=== PATIENT | female | born 1935 | race Caucasian/White ===

== ENCOUNTER 2016-10-14 20:56 | Emergency (ER) | payer OTHER ==
--- NOTE | 2016-10-14 21:10 | CPEKG ---
Heart Rate: 80 RR Interval: 750 P-R Interval: 212 QRSD Interval: 100 QT Interval: 404 QTC Interval: 466 P Charlotte: 71 QRS Charlotte: 7 T Wave Charlotte: 39 EKG Severity - OTHERWISE NORMAL ECG - EKG Impression: SINUS RHYTHM EKG Impression: VENTRICULAR PREMATURE COMPLEX Electronically Signed By: Manny Mena 14-Oct-2016 21:15:13
[2016-10-14] MEDS ORDERED: NITROGLYCERIN 0.4 MG BTL SL PRN (21:11)
[2016-10-14] MEDS ORDERED: NS 500 ML IV ONE (21:11)
[2016-10-14] MEDS ORDERED: ASPIRIN 81 MG CHEWABLE TAB PO ONE (21:11)
--- NOTE | 2016-10-14 21:14 | EDPHY ---
H & P Time Seen by Provider: 10/14/16 21:02 HPI/ROS: CHIEF COMPLAINT: Chest pain, hypertension HISTORY OF PRESENT ILLNESS: Patient is an 80-year-old female who comes to the emergency department complaining of left-sided chest pain that began about 2 hours ago. She also noticed that her blood pressure was high today near 200 systolic. She states that it tends to fluctuate greatly and that when she goes to the dentist who will be near 200 but then when she goes to [place] an hour to later it will be 130. She does not have any history of coronary artery disease. She denies any shortness of breath, nausea or diaphoresis. Her symptoms are not worsened by exertion or movement. She has not had a fever. She does have a mild dry cough. She does not feel lightheaded or dizzy. REVIEW OF SYSTEMS: Constitutional: denies: chills, fever, recent illness, recent injury EENTM: denies: blurred vision, double vision, nose congestion Respiratory: See HPI Cardiac: See HPI Gastrointestinal/Abdominal: denies: abdominal pain, diarrhea, nausea, vomiting, blood streaked stools Genitourinary: denies: dysuria, frequency, hematuria, pain Musculoskeletal: denies: joint pain, muscle pain Skin: denies: lesions, rash, jaundice, bruising Neurological: denies: headache, numbness, paresthesia, tingling, dizziness, weakness Hematologic/Lymphatic: denies: blood clots, easy bleeding, easy bruising Immunologic/allergic: denies: HIV/AIDS, transplant EXAM: GENERAL: Well-appearing, well-nourished and in no acute distress. HEAD: Atraumatic, normocephalic. EYES: Pupils equal round and reactive to light, extraocular movements intact, sclera anicteric, conjunctiva are normal. ENT: TMs normal, nares patent, oropharynx clear without exudates. Moist mucous membranes. NECK: Normal range of motion, supple without lymphadenopathy or JVD. LUNGS: Breath sounds clear to auscultation bilaterally and equal. No wheezes rales or rhonchi. HEART: Regular rate and rhythm without murmurs, rubs or gallops. ABDOMEN: Soft, nontender, normoactive bowel sounds. No guarding, no rebound. No masses appreciated. BACK: No CVA tenderness, no spinal tenderness, step-offs or deformities EXTREMITIES: Normal range of motion, no pitting or edema. No clubbing or cyanosis. NEUROLOGICAL: Cranial nerves II through XII grossly intact. Normal speech, normal gait. 5/5 strength, normal movement in all extremities, normal sensation PSYCH: Normal mood, normal affect. SKIN: Warm, dry, normal turgor, no visible rashes or lesions. Source: Patient Exam Limitations: No limitations - Medical/Surgical History Hx Asthma: No Hx Chronic Respiratory Disease: No Hx Diabetes: No Hx Cardiac Disease: No Hx Renal Disease: No Hx Cirrhosis: No Hx Alcoholism: No Hx HIV/AIDS: No Hx Splenectomy or Spleen Trauma: No Other PMH: htn; high cholesterol; - Family History Significant Family History: Hypertension - Social History Smoking Status: Never smoked Alcohol Use: Sober Drug Use: None Constitutional: Initial Vital Signs Temperature (C) 36.8 C 10/14/16 21:18 Heart Rate 71 10/14/16 21:18 Respiratory Rate 18 10/14/16 21:18 Blood Pressure 162/81 H 10/14/16 21:18 O2 Sat (%) 96 10/14/16 21:18 O2 Delivery Mode Room Air Allergies/Adverse Reactions: No Known Allergies Allergy (Verified 10/14/16 21:18) Home Medications: Medication Instructions Recorded ASPIRIN 08/30/14 Amlodipine-Atorvast 5-10 mg 08/30/14 Atorvastatin Calcium 08/30/14 Hydrochlorothiazide 08/30/14 Medical Decision Making - Diagnostics EKG Interpretation: An EKG obtained and was read and documented in trace view. Please see trace view for full reading and report. Sinus rhythm, PVC, no acute ischemic changes Imaging: X-ray: chest x-ray was obtained. I viewed the images myself on the PACS system. My interpretation of the images is: negative for acute disease . The radiologist interpretation is negative. ED Course/Re-evaluation: 10:15 p.m. we discussed the patient's lab and imaging results. They are reassuring. She states that her pain is completely gone. Her blood pressure is now 160 systolic. I recommended admission for continued cardiac rule out. The patient adamantly denies this. She declines my 2nd troponin here in the emergency department as well. I will call her [place] physician and recommend outpatient stress test and follow up tomorrow. The patient agrees with this. 10:35 p.m. I spoke with [place] who will have cardiology call her tomorrow to schedule a stress test. Differential Diagnosis: Partial list of the Differential diagnosis considered include but were not limited to; acute coronary disease, anxiety, hypertension and although unlikely based on the history and physical exam, I also considered cardiac arrhythmia, emergent hypertension, dissection, aneurysm, PE, pneumonia. I discussed these differential diagnoses and the plan with the patient as well as the usual and expected course. The patient understands that the diagnosis is provisional and that in medicine we are not always correct and that further workup is often warranted. Usual and customary warnings were given. All of the patient's questions were answered. The patient was instructed to return to the emergency department should the symptoms at all worsen or return, otherwise to followup with the physician as we discussed. - Data Points Laboratory Results: Laboratory Results 10/14/16 21:15 10/14/16 21:15 10/14/16 10/14/16 10/14/16 21:15 21:15 21:15 WBC 8.04 10^3/uL 10^3/uL (3.80-9.50) RBC 4.55 10^6/uL 10^6/uL (4.18-5.33) Hgb 15.0 g/dL g/dL (12.6-16.3) Hct 43.3 % % (38.0-47.0) MCV 95.2 fL fL (81.5-99.8) MCH 33.0 pg pg (27.9-34.1) MCHC 34.6 g/dL g/dL (32.4-36.7) RDW 12.5 % % (11.5-15.2) Plt Count 256 10^3/uL 10^3/uL (150-400) MPV 9.2 fL fL (8.7-11.7) Neut % (Auto) 47.0 % % (39.3-74.2) Lymph % (Auto) 43.5 % % (15.0-45.0) Vance % (Auto) 6.5 % % (4.5-13.0) Eos % (Auto) 2.1 % % (0.6-7.6) Baso % (Auto) 0.7 % % (0.3-1.7) Nucleat RBC Rel Count 0.0 % % (0.0-0.2) Absolute Neuts (auto) 3.77 10^3/uL 10^3/uL (1.70-6.50) Absolute Lymphs (auto) 3.50 10^3/uL H 10^3/uL (1.00-3.00) Absolute Monos (auto) 0.52 10^3/uL 10^3/uL (0.30-0.80) Absolute Eos (auto) 0.17 10^3/uL 10^3/uL (0.03-0.40) Absolute Basos (auto) 0.06 10^3/uL 10^3/uL (0.02-0.10) Absolute Nucleated RBC 0.00 10^3/uL 10^3/uL (0-0.01) Immature Gran % 0.2 % % (0.0-1.1) Immature Gran # 0.02 10^3/uL 10^3/uL (0.00-0.10) PT 12.2 SEC SEC (12.0-15.0) INR 0.91 (0.83-1.16) APTT 25.2 SEC SEC (23.0-38.0) D-Dimer 0.34 ug/mLFEU ug/mLFEU (0.00-0.50) Sodium 139 mEq/L mEq/L (134-144) Potassium 4.5 mEq/L mEq/L (3.5-5.2) Chloride 103 mEq/L mEq/L (97-110) Carbon Dioxide 27 mEq/l mEq/l (22-31) Anion Gap 9 mEq/L mEq/L (8-16) BUN 22 mg/dL mg/dL (7-23) Creatinine 0.8 mg/dL mg/dL (0.6-1.0) Estimated GFR > 60 Glucose 103 mg/dL H mg/dL (70-100) Calcium 9.6 mg/dL mg/dL (8.5-10.4) Total Bilirubin 1.2 mg/dL mg/dL (0.1-1.4) Conjugated Bilirubin 1.0 mg/dL H mg/dL (0.0-0.5) Unconjugated Bilirubin 0.2 mg/dL mg/dL (0.0-1.1) AST 42 IU/L IU/L (14-46) ALT 26 IU/L IU/L (9-52) Alkaline Phosphatase 65 IU/L IU/L (38-126) Troponin I 0.017 ng/mL ng/mL (0-0.034) Total Protein 7.8 g/dL g/dL (6.3-8.2) Albumin 4.4 g/dL g/dL (3.5-5.0) Lipase 200.0 IU/L IU/L (23-300) Specimen Hemolysis 166 Medications Given: Discontinued Medications Aspirin (Aspirin) 324 mg PO EDNOW ONE Stop: 10/14/16 21:12 Last Admin: 10/14/16 21:33 Dose: 324 mg Sodium Chloride (Ns) 500 mls @ 0 mls/hr IV ONCE ONE PRN Reason: As Directed Stop: 10/14/16 21:12 Last Admin: 10/14/16 21:33 Dose: 500 mls Departure - Departure Disposition: Home, Routine, Self-Care Clinical Impression: Chest pain Qualifiers: Chest pain type: other chest pain Qualified Code(s): R07.89 - Other chest pain Hypertension Qualifiers: Hypertension type: essential hypertension Qualified Code(s): I10 - Essential ( primary) hypertension Condition: Fair Instructions: Chest Pain (ED), Hypertension (ED) Referrals: FELI FLORES [Primary Care Provider] - As per Instructions
[2016-10-14 21:22] LABS: % IMMATURE GRANULYOCYTES 0.2 % (0.0-1.1); ABSOLUTE IMMATURE GRANULOCYTES 0.02 10^3/uL (0.00-0.10); ADD DIFF? NO; ADD MORPH? NO; ADD SCAN? NO; ATYPICAL LYMPHOCYTE FLAG 10 (0-99); FRAGMENT RBC FLAG 0 (0-99); HEMATOCRIT 43.3 % (38.0-47.0); LEFT SHIFT FLG 0 (0-99); LIPEMIA HEMOLYSIS FLAG 90 (0-99); MEAN CELL HEMOGLOBIN CONCENTR. 34.6 g/dL (32.4-36.7); MEAN CELL VOLUME 95.2 fL (81.5-99.8); MEAN PLATELET VOLUME 9.2 fL (8.7-11.7); PLATELET CLUMPS FLAG 0 (0-99); PLATELET COUNT 256 10^3/uL (150-400); RED BLOOD CELL COUNT 4.55 10^6/uL (4.18-5.33); RED CELL DISTRIBUTION WIDTH 12.5 % (11.5-15.2)
[2016-10-14 21:39] LABS: ALANINE AMINOTRANSFERASE 26 IU/L (9-52); ALBUMIN 4.4 g/dL (3.5-5.0); ALKALINE PHOSPHATASE 65 IU/L (38-126); ANION GAP 9 mEq/L (8-16); ASPARTATE AMINOTRANSFERASE 42 IU/L (14-46); BILIRUBIN,TOTAL 1.2 mg/dL (0.1-1.4); BILIRUBIN-UNCONJUGATED 0.2 mg/dL (0.0-1.1); CALCIUM 9.6 mg/dL (8.5-10.4); CARBON DIOXIDE 27 mEq/l (22-31); CHLORIDE 103 mEq/L (97-110); CREATININE 0.8 mg/dL (0.6-1.0); GLOMERULAR FILTRATION RATE > 60; GLUCOSE 103 mg/dL (70-100); POTASSIUM 4.5 mEq/L (3.5-5.2); SODIUM 139 mEq/L (134-144); SPECIMEN HEMOLYSIS 166; TOTAL PROTEIN 7.8 g/dL (6.3-8.2)
[2016-10-14 21:42] LABS: APTT 25.2 SEC (23.0-38.0); INR 0.91 (0.83-1.16); PROTIME(PATIENT) 12.2 SEC (12.0-15.0)
[2016-10-14 21:51] LABS: TROPONIN I 0.017 ng/mL (0-0.034)
[2016-10-14 22:03] VITALS: RESP 16
[2016-10-14 22:47] VITALS: BP 161/92; PULSE 65; TEMP 97.7; O2SAT 94
== END 2016-10-14 22:47 | disposition home or self-care (01) ==
DX: R07.89 Other chest pain (principal); I10 Essential (primary) hypertension

== ENCOUNTER 2018-06-23 07:20 | Emergency (ER) | payer OTHER ==
--- NOTE | 2018-06-23 07:39 | EDPHY ---
H & P Stated Complaint: high blood pressure this morning Time Seen by Provider: 06/23/18 07:32 HPI/ROS: CHIEF COMPLAINT: Hypertension HISTORY OF PRESENT ILLNESS: Patient is a 82-year-old female who woke up in the middle night with a headache. She decided to take her blood pressure and it was 204/80. She took it several time over the next few hours and it gradually decreased to 180/80. Her headache resolved spontaneously. She was concerned however about her blood pressure decided to come to the ER. She denies chest pain or shortness of breath. No focal weakness or deficits. She did take an extra dose of her hydrochlorothiazide last night. She states that this is which she has been told to do in the past. Severity: Mild Modifying factors: Resolved REVIEW OF SYSTEMS: Constitutional: denies: chills, fever, recent illness, recent injury EENTM: denies: blurred vision, double vision, nose congestion Respiratory: denies: cough, shortness of breath Cardiac: denies: chest pain, irregular heart rate, lightheadedness, palpitations Gastrointestinal/Abdominal: denies: abdominal pain, diarrhea, nausea, vomiting, blood streaked stools Genitourinary: denies: dysuria, frequency, hematuria, pain Musculoskeletal: denies: joint pain, muscle pain Skin: denies: lesions, rash, jaundice, bruising Neurological: denies: headache, numbness, paresthesia, tingling, dizziness, weakness Hematologic/Lymphatic: denies: blood clots, easy bleeding, easy bruising Immunologic/allergic: denies: HIV/AIDS, transplant 10 systems reviewed and negative except as noted EXAM: GENERAL: Well-appearing, well-nourished and in no acute distress. HEAD: Atraumatic, normocephalic. EYES: Pupils equal round and reactive to light, extraocular movements intact, sclera anicteric, conjunctiva are normal. ENT: TMs normal, nares patent, oropharynx clear without exudates. Moist mucous membranes. NECK: Normal range of motion, supple without lymphadenopathy or JVD. LUNGS: Breath sounds clear to auscultation bilaterally and equal. No wheezes rales or rhonchi. HEART: Regular rate and rhythm without murmurs, rubs or gallops. ABDOMEN: Soft, nontender, normoactive bowel sounds. No guarding, no rebound. No masses appreciated. BACK: No CVA tenderness, no spinal tenderness, step-offs or deformities EXTREMITIES: Normal range of motion, no pitting or edema. No clubbing or cyanosis. NEUROLOGICAL: Cranial nerves II through XII grossly intact. Normal speech, normal gait. 5/5 strength, normal movement in all extremities, normal sensation , normal reflexes PSYCH: Normal mood, normal affect. SKIN: Warm, dry, normal turgor, no visible rashes or lesions. Source: Patient Exam Limitations: No limitations - Personal History Current Tetanus Diphtheria and Acellular Pertussis (TDAP): Yes - Medical/Surgical History Hx Asthma: No Hx Chronic Respiratory Disease: No Hx Diabetes: No Hx Cardiac Disease: No Hx Renal Disease: No Hx Cirrhosis: No Hx Alcoholism: No Hx HIV/AIDS: No Hx Splenectomy or Spleen Trauma: No Other PMH: htn; high cholesterol; - Family History Significant Family History: No pertinent family hx - Social History Smoking Status: Never smoked Alcohol Use: Sober Drug Use: None Constitutional: Initial Vital Signs Temperature (C) 36.7 C 06/23/18 07:23 Heart Rate 83 06/23/18 07:23 Respiratory Rate 17 06/23/18 07:23 Blood Pressure 181/90 H 06/23/18 07:23 O2 Sat (%) 94 06/23/18 07:23 O2 Delivery Mode Room Air Allergies/Adverse Reactions: No Known Allergies Allergy (Verified 06/23/18 07:21) Home Medications: Medication Instructions Recorded ASPIRIN 08/30/14 Amlodipine-Atorvast 5-10 mg 08/30/14 Atorvastatin Calcium 08/30/14 Hydrochlorothiazide 08/30/14 Medical Decision Making ED Course/Re-evaluation: We had a long discussion. The patient is currently asymptomatic. Her blood pressure is coming down on its own. She states that occasionally he dropped too low, below 100. This of course makes it difficult to make recommendations as far as more last blood pressure medications. She did the appropriate thing last night taking extra dose. Advised her to track her blood pressures and to take them less frequently but more regularly and follow up with her primary for further management. She is currently asymptomatic. She did not have any chest pain or shortness of breath associated with the episode tonight. No stroke- like symptoms. She is eager to go home and declines further workup. I believe that this is safe. Differential Diagnosis: Partial list of the Differential diagnosis considered include but were not limited to; hypertension, anxiety and although unlikely based on the history and physical exam, I also considered stroke, acute coronary disease, hypertensive crisis. I discussed these differential diagnoses and the plan with the patient as well as the usual and expected course. The patient understands that the diagnosis is provisional and that in medicine we are not always correct and that further workup is often warranted. Usual and customary warnings were given. All of the patient's questions were answered. The patient was instructed to return to the emergency department should the symptoms at all worsen or return, otherwise to followup with the physician as we discussed. Departure - Departure Disposition: Home, Routine, Self-Care Clinical Impression: Hypertension Qualifiers: Hypertension type: unspecified Qualified Code(s): I10 - Essential (primary) hypertension Condition: Fair Instructions: Hypertension in the Older Adult (ED) Referrals: FELI FLORES [Primary Care Provider] - 2-3 days, if not improved
[2018-06-23 07:44] VITALS: BP 172/112
== END 2018-06-23 07:50 | disposition home or self-care (01) ==
DX: I10 Essential (primary) hypertension (principal); E78.00 Pure hypercholesterolemia, unspecified